=== PATIENT | female | born 1985 | race Caucasian/White ===

== ENCOUNTER 2020-11-28 09:25 | Outpatient (CLI) | payer OTHER | END 2020-11-28 09:39 | disposition home or self-care (01) | LOC: SONOGRAMA 09:25 | PROVIDERS: ATTEND Obstetrics & Gynecology Maternal & Fetal Medicine | DX: N84.0 Polyp of corpus uteri (principal) ==

== ENCOUNTER 2022-06-15 09:41 | Outpatient (CLI) | payer OTHER | END 2022-06-15 09:50 | disposition home or self-care (01) | LOC: RX STUDY 09:41 | PROVIDERS: ATTEND Obstetrics & Gynecology Maternal & Fetal Medicine | DX: N80.9 Endometriosis, unspecified (principal) ==

== ENCOUNTER 2023-11-17 09:33 | Outpatient (CLI) | payer OTHER | END 2023-11-17 09:43 | disposition home or self-care (01) | LOC: SONOGRAMA 09:33 | PROVIDERS: ATTEND Obstetrics & Gynecology Maternal & Fetal Medicine | DX: N84.0 Polyp of corpus uteri (principal) ==